=== PATIENT | female | born 2000 | race Hispanic/Latino ===

== ENCOUNTER 2021-11-01 10:23 | Emergency (ER) | payer SELFPAY ==
[~2021-11-01] VITALS: Ht 167.6 cm; Wt 99.8 kg
[2021-11-01] MEDS ORDERED: KETOROLAC TROMETHAMINE 30 MG/ML VIAL ONE (12:09)
[2021-11-01] MEDS ORDERED: FAMOTIDINE 20 MG/2 ML VIAL IV ONE (12:09)
[2021-11-01] MEDS ORDERED: ONDANSETRON HCL INJ 2MG/ML 2ML 2 MG/ML VIAL ONE (12:09)
[2021-11-01] MEDS ORDERED: FAMOTIDINE 20 MG/2 ML VIAL IV STA (12:16)
[2021-11-01] MEDS ORDERED: ONDANSETRON HCL INJ 2MG/ML 2ML 2 MG/ML VIAL IV STA (12:16)
[2021-11-01] MEDS ORDERED: KETOROLAC TROMETHAMINE 30 MG/ML VIAL IV STA (12:18)
[2021-11-01] MEDS ORDERED: SODIUM CHLORIDE 0.9% 1000ML 1,000 ML IV ONE (12:30)
[2021-11-01] MEDS ORDERED: IOPAMIDOL 370 MG/ML 100 ML INFUS..BTL INJ ONE (13:39)
[2021-11-01] MEDS ORDERED: METHYLPREDNISOLONE SOD SUCC 125 MG/2ML VIAL IV ONE (14:00)
[2021-11-01] MEDS ORDERED: DIPHENHYDRAMINE HCL INJ 50 MG/ML VIAL IV ONE (14:00)
[2021-11-01] MEDS ORDERED: METHYLPREDNISOLONE SOD SUCC 125 MG/2ML VIAL ONE (14:12)
[2021-11-01] MEDS ORDERED: DIPHENHYDRAMINE HCL INJ 50 MG/ML VIAL ONE (14:12)
[2021-11-01] MEDS ORDERED: PAXLOVID 150-11 EACH PO (15:07)
[2021-11-01] MEDS ORDERED: DICYCLOMINE HCL20 MG PO (15:09)
[2021-11-01] MEDS ORDERED: ONDANSETRON ODT4 MG PO (15:09)
[2021-11-02] MEDS ORDERED: PREDNISONE20 MG PO (00:01)
[2021-11-02] MEDS ORDERED: FAMOTIDINE40 MG PO (00:02)
== END 2021-11-01 15:26 | disposition home or self-care (01) ==
LOC: FSED 10:34
DX: R10.31 Right lower quadrant pain (principal); U07.1 COVID-19; R11.2 Nausea with vomiting, unspecified; L27.1 Localized skin eruption due to drugs and medicaments taken internally; T50.8X5A Adverse effect of diagnostic agents, initial encounter
CPT/HCPCS: 74177; 80048; 80076; 81003; 81025; 85025; 99283; J1200; J1885; J2405; J2930; Q9967

== ENCOUNTER 2022-04-30 01:07 | Emergency (ER) | payer SELFPAY ==
[~2022-04-30] VITALS: Ht 167.6 cm; Wt 99.8 kg
[~2022-04-30 01:07] MED LIST: DICYCLOMINE HCL20 MG PO; FAMOTIDINE40 MG PO; ONDANSETRON ODT4 MG PO; PAXLOVID 150-11 EACH PO; PREDNISONE20 MG PO
[2022-04-30] MEDS ORDERED: KETOROLAC TROMETHAMINE 30 MG/ML VIAL IV STA (01:50)
[2022-04-30] MEDS ORDERED: ONDANSETRON HCL INJ 2MG/ML 2ML 2 MG/ML VIAL IV STA (01:50)
[2022-04-30] MEDS ORDERED: SODIUM CHLORIDE 0.9% 1000ML 1,000 ML IV ONE (02:00)
[2022-04-30] MEDS ORDERED: KETOROLAC TROMETHAMINE 30 MG/ML VIAL ONE (02:17)
[2022-04-30] MEDS ORDERED: SODIUM CHLORIDE 0.9% 1000ML 1,000 ML ONE (02:18)
[2022-04-30] MEDS ORDERED: ONDANSETRON HCL INJ 2MG/ML 2ML 2 MG/ML VIAL ONE (02:18)
[2022-04-30] MEDS ORDERED: CEFTRIAXONE 1 GM VIAL IV ONE (03:15)
[2022-04-30] MEDS ORDERED: CEPHALEXIN500 MG PO (03:39)
[2022-04-30] MEDS ORDERED: CEFTRIAXONE 1 GM VIAL ONE (03:43)
[2022-04-30 03:54] VITALS: BP 127/83
== END 2022-04-30 06:56 | disposition home or self-care (01) ==
LOC: FSED 01:39
DX: R10.31 Right lower quadrant pain (principal); N39.0 Urinary tract infection, site not specified; R11.2 Nausea with vomiting, unspecified; F17.210 Nicotine dependence, cigarettes, uncomplicated
CPT/HCPCS: 74176; 99284; J0696; J1885; J2405; J7030

== ENCOUNTER 2022-07-09 12:28 | Emergency (ER) | payer SELFPAY ==
[~2022-07-09] VITALS: Ht 162.6 cm; Wt 97.5 kg
[~2022-07-09 12:28] MED LIST changes: +CEPHALEXIN500 MG PO
== END 2022-07-09 14:28 | disposition home or self-care (01) ==
LOC: FSED 12:45
DX: R60.9 Edema, unspecified (principal); F17.210 Nicotine dependence, cigarettes, uncomplicated
CPT/HCPCS: 80053; 81003; 81025; 83880; 85025; 99282

== ENCOUNTER 2022-09-05 08:50 | Emergency (ER) | payer SELFPAY ==
[~2022-09-05] VITALS: Ht 162.6 cm; Wt 96.2 kg
[2022-09-05] MEDS ORDERED: FAMOTIDINE 20 MG/2 ML VIAL IV STA (09:33)
[2022-09-05] MEDS ORDERED: ONDANSETRON HCL INJ 2MG/ML 2ML 2 MG/ML VIAL IV STA (09:33)
[2022-09-05] MEDS ORDERED: SODIUM CHLORIDE 0.9% 1000ML 1,000 ML IV ONE (09:45)
[2022-09-05] MEDS ORDERED: SODIUM CHLORIDE 0.9% 1000ML 1,000 ML ONE (09:46)
[2022-09-05 10:30] VITALS: O2SAT 99
[2022-09-05] MEDS ORDERED: ONDANSETRON ODT4 MG PO (12:33)
[2022-09-05] MEDS ORDERED: PEPCID20 MG PO (12:34)
[2022-09-05] MEDS ORDERED: KETOROLAC TROME10 MG PO (12:36)
[2022-09-05 12:44] VITALS: PULSE 64; RESP 17; TEMP 97.5
== END 2022-09-05 12:46 | disposition home or self-care (01) ==
LOC: FSED 08:51
DX: R10.11 Right upper quadrant pain (principal); N20.0 Calculus of kidney; R11.2 Nausea with vomiting, unspecified
CPT/HCPCS: 74176; 76705; 80048; 80076; 81003; 81025; 85025; 99284; J2405; J7030